=== PATIENT | male | born 1990 | race American Indian/Alaskan Native ===

== ENCOUNTER 2017-05-09 14:17 | Emergency (ER) | payer OTHER ==
[2017-05-09 14:42] VITALS: BP 115/73
[2017-05-09] MEDS ORDERED: MOTRIN PO ONE (15:11)
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
--- NOTE | 2017-05-09 16:21 | XRay Report ---
FINAL REPORT PROCEDURE: Chest and bilateral ribs. TECHNIQUE: PA chest, AP views of the right and left ribs. HISTORY: Right lateral rib pain. COMPARISON: No prior studies are available for comparison. FINDINGS: The heart and mediastinum appear normal. The lungs are clear and well expanded. There are no pleural effusions. The soft tissues are unremarkable. The regional skeleton appears intact. There are no rib fractures identified. IMPRESSION: Normal studies.
== END 2017-05-09 16:31 | disposition home or self-care (01) ==
LOC: ED 14:17
DX: S20.211A Contusion of right front wall of thorax, initial encounter (principal); S13.4XXA Sprain of ligaments of cervical spine, initial encounter; V89.2XXA Person injured in unspecified motor-vehicle accident, traffic, initial encounter; Y93.89 Activity, other specified; Y92.89 Other specified places as the place of occurrence of the external cause; Y99.8 Other external cause status
CPT/HCPCS: 99283